=== PATIENT | female | born 1950 | race Caucasian/White ===

== ENCOUNTER → 2019-02-18 | Outpatient (CLI) | payer OTHER | LOC: RAD 09:53 | DX: Z12.31 Encounter for screening mammogram for malignant neoplasm of breast (principal) ==

== ENCOUNTER → 2019-03-02 | Outpatient (CLI) | payer OTHER | LOC: ULTRA 08:49 | DX: N63.20 Unspecified lump in the left breast, unspecified quadrant (principal) ==

== ENCOUNTER 2020-08-29 22:06 | Emergency (ER) | payer OTHER ==
[~2020-08-29] VITALS: Ht 157.5 cm; Wt 95.3 kg
[2020-08-29] MEDS ORDERED: LISINOPRIL20 MG PO (22:13)
[2020-08-29] MEDS ORDERED: SIMVASTATIN80 MG PO (22:13)
[2020-08-29] MEDS ORDERED: AMARYL4 MG PO (22:14)
[2020-08-29 22:46] LABS: ABSOLUTE NEUTROPHILS 9.5 thou/uL (1.4-8.2); BASOPHILS 0.3 % (0.0-2.0); EOSINOPHILS 0.1 % (0.0-3.0); HEMATOCRIT 32.2 % (37.0-47.0); HEMOGLOBIN 10.4 gm/dL (12.0-15.0); MCH 28.3 pg (26.0-34.0); MCHC 32.3 g/dL (28.0-37.0); MCV 87.4 fL (80.0-100.0); MONOCYTES 2.8 % (1.0-8.0); PLATELET COUNT 401 thou/uL (150-400); POLYS 84.8 % (36.0-66.0); RBC 3.69 mil/uL (4.20-5.00); RDW 14.2 % (10.5-14.5); WBC 11.2 thou/uL (4.0-11.0)
[2020-08-29 22:49] LABS: ANION GAP 17 mmol/L (7-16); BUN 25 mg/dL (7-18); CALCIUM 9.3 mg/dL (8.5-10.1); CHLORIDE 101 mmol/L (98-107); CO2 19 mmol/L (21-32); GLUCOSE 236 mg/dL (74-106); POTASSIUM 4.6 mmol/L (3.5-5.1); SODIUM 137 mmol/L (136-145)
[2020-08-29 22:52] LABS: URINE BILIRUBIN NEGATIVE (Negative); URINE BLOOD 2+ (Negative); URINE CLARITY CLOUDY; URINE COLOR YELLOW; URINE GLUCOSE-RANDOM* TRACE (Negative); URINE KETONES NEGATIVE (Negative); URINE PROTEIN (DIPSTICK) 2+ (Negative)
[2020-08-29 22:53] LABS: URINE LEUKOCYTES-REFLEX 2+ (Negative); URINE NITRITE-REFLEX POSITIVE (Negative)
[2020-08-29 23:00] LABS: ALBUMIN 3.2 g/dL (3.4-5.0); DIRECT BILIRUBIN 0.1 mg/dL (<0.1-0.2); SGOT 58 U/L (15-37); SGPT 62 U/L (30-65); TOTAL BILIRUBIN 0.3 mg/dL (0.2-1.0); TOTAL PROTEIN 7.2 g/dL (6.4-8.2); TROPONIN-I <0.06 ng/mL (<0.06)
[2020-08-29 23:07] LABS: CASTS None Seen /LPF (None Seen); CRYSTALS None Seen /LPF (None Seen); MUCUS 4-6 Moderate strn/LPF (None Seen); SQUAMOUS 4-10 Moderate /LPF (0-3); WBC CLUMPS Few (None Seen)
[2020-08-30] MEDS ORDERED: CLINDAMYCIN HC300 MG PO (02:22)
[2020-08-30] MEDS ORDERED: KEFLEX500 M1 PO (02:22)
[2020-08-30 02:42] VITALS: BP 140/69
--- NOTE | 2020-08-30 07:26 | EKG ---
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1950 Requested By: Adriana Vaughan Order Number: [id number] MD: Azael Montiel Measurements Intervals [place] Rate: 110 P: 48 [place]: 143 QRS: 8 QRSD: 86 T: 56 QT: 308 QTc: 417 Interpretive Statements Sinus tachycardia Low voltage, precordial leads No previous ECG available for comparison Electronically Signed On 08-30-2020 7:26:47 [employer] by Azael Montiel [email or web address] <ELECTRONICALLY SIGNED> By: Azael Montiel MD, [facility] 08/30/20 0726 [id number] Azael Montiel MD, FACC /EPI
== END 2020-08-30 02:45 | disposition home or self-care (01) ==
LOC: ER 22:06
PROVIDERS: Emergency Medicine
DX: N39.0 Urinary tract infection, site not specified (principal); N17.9 Acute kidney failure, unspecified; E87.2 Acidosis; E86.0 Dehydration; I10 Essential (primary) hypertension; E11.9 Type 2 diabetes mellitus without complications; E78.5 Hyperlipidemia, unspecified; Z90.89 Acquired absence of other organs; Z79.899 Other long term (current) drug therapy; Z88.0 Allergy status to penicillin; Z88.5 Allergy status to narcotic agent